=== PATIENT | female | born 1990 | race Hispanic/Latino ===

== ENCOUNTER 2025-05-08 15:59 | Emergency (ER) | payer OTHER ==
[~2025-05-08] VITALS: Ht 167.6 cm; Wt 87.5 kg
[2025-05-08 16:09] VITALS: BP 157/79; PULSE 64; RESP 18; TEMP 97.2; O2SAT 98
[2025-05-08] MEDS ORDERED: TETRACAINE HCL ONE (16:09)
[2025-05-08 16:21] VITALS: BP 154/74; PULSE 57; RESP 18; TEMP 97.2; O2SAT 98
[2025-05-08] MEDS ORDERED: TORADOL ONE (16:23)
[2025-05-08] MEDS ORDERED: KETO5DRO37 OP (16:25)
[2025-05-08] MEDS ORDERED: MOXI3DRO2 OP (16:25)
[2025-05-08] MEDS: TORADOL IM STA (16:27)
== END 2025-05-08 16:25 | disposition home or self-care (01) ==
LOC: ER 15:59
DX: H10.33 Unspecified acute conjunctivitis, bilateral (principal)
CPT/HCPCS: 99283; 96372; J1885